=== PATIENT | male | born 1970 | race African-American/Black ===

== ENCOUNTER 2018-01-04 23:15 | Emergency (ER) | payer SELFPAY ==
--- NOTE | 2018-01-04 23:46 | EDM.PDOC ---
ED HPI GENERAL MEDICAL PROBLEM - General Chief Complaint: Fever Stated Complaint: Fever, Palpitations Time Seen by Provider: 01/04/18 23:23 Source of Information: Reports: Patient, Family History Limitations: Reports: No Limitations - History of Present Illness INITIAL COMMENTS - FREE TEXT/NARRATIVE: Patient presents with complaints of cough, fever, and chest pain. He has had this over the last couple of days. He states that he has a respiratory infection on an annual basis. Reported to have taken ibuprofen before coming in. Reports a fever of 101.4 F at home. Is drinking fluids. Additional complaints include shortness of breath, headache, chills, fever, sore throat. No abdominal pain, nausea, or vomiting. No blood in urine or stools. He states he is having regular bowel and bladder movements. No neurologic changes. No daily medications or allergies stated. Onset: Gradual Onset Date: 01/01/18 Duration: Getting Worse Location: Reports: Chest Severity: Moderate Associated Symptoms: Reports: Chest Pain, Cough, Fever/Chills, Headaches Treatments [employer]ING: Reports: NSAIDS - Related Data Allergies Allergy/AdvReac Type Severity Reaction Status Date / Time No Known Allergies Allergy Verified 01/05/18 00:01 Home Meds: Home Meds . [No Known Home Meds] 01/05/18 [History] ED ROS GENERAL - Review of Systems Review Of Systems: See Below Constitutional: Reports: Fever, Chills HEENT: Reports: Throat Pain Respiratory: Reports: Shortness of Breath, Cough Cardiovascular: Reports: Chest Pain Endocrine: Reports: No Symptoms GI/Abdominal: Reports: No Symptoms : Reports: No Symptoms Musculoskeletal: Reports: Joint Pain Skin: Reports: No Symptoms Neurological: Reports: Headache Psychiatric: Reports: No Symptoms Hematologic/Lymphatic: Reports: No Symptoms Immunologic: Reports: No Symptoms ED EXAM, GENERAL - Physical Exam Exam: See Below Exam Limited By: No Limitations General Appearance: Alert, WD/WN, Mild Distress Eye Exam: Bilateral Eye: EOMI, Normal Inspection, PERRL Ears: Normal TMs Nose: Normal Inspection, Normal Mucosa, No Blood Throat/Mouth: Inflammation Head: Atraumatic, Normocephalic Neck: Normal Inspection, Supple, Lymphadenopathy (L), Lymphadenopathy (R) Respiratory/Chest: No Respiratory Distress, Lungs Clear, Normal Breath Sounds, No Accessory Muscle Use, Chest Non-Tender Cardiovascular: Other (sinus with PAC's) GI/Abdominal: Normal Bowel Sounds, Soft, Non-Tender, No Organomegaly, No Distention, No Abnormal Bruit, No Mass Extremities: Normal Inspection, Normal Range of Motion, Non-Tender, Normal Capillary Refill, No Pedal Edema Neurological: Alert, Oriented, CN II-XII Intact, Normal Cognition, Normal Gait, Normal Reflexes, No Motor/Sensory Deficits Psychiatric: Normal Affect, Normal Mood Skin Exam: Warm, Dry, Intact, Normal Color, No Rash Lymphatic: Adenopathy (as above to anterior cervical bilateral) EKG INTERPRETATION EKG Date: 01/04/18 Time: 23:28 Rhythm: Other (sinus rhythm with pac's) [place]: Normal P-Wave: Present QRS: Normal ST-T: Normal QT: Normal Comparison: NA - No Prior EKG EKG Interpretation Comments: sinus rhythm with pac's possible right ventricular conduction delay minimal voltage criteria for lvh, possible normal variant septal SC of indeterminate age abnormal ecg Course - Orders/Labs/Meds Orders: Active Orders 24 hr Category Date Time Status EKG Documentation Completion [RC] STAT Care 01/04/18 23:24 Ordered C-REACTIVE PROTEIN [CHEM] Stat Lab 01/04/18 23:24 Ordered CBC WITH AUTO DIFF [HEME] Stat Lab 01/04/18 23:25 Ordered COMPREHENSIVE METABOLIC PN,CMP [CHEM] Stat Lab 01/04/18 23:24 Ordered INFLUENZA A+B AG SCREEN [RM] Stat Lab 01/04/18 23:24 Ordered STREP SCRN A RAPID W CULT CONF [RM] Stat Lab 01/04/18 23:24 Ordered TROPONIN I [CHEM] Stat Lab 01/04/18 23:24 Ordered - Re-Assessments/Exams Free Text/Narrative Re-Assessment/Exam: 01/05/18 00:27 Review of labs do not indicate ACS, nor do they indicate an acute bacterial process. Departure - Departure Time of Disposition: 00:26 Disposition: Home, Self-Care 01 Condition: Good Clinical Impression: Viral upper respiratory illness - Discharge Information Instructions: Upper Respiratory Infection, Adult Additional Instructions: stay well hydrated with water Take ibuprofen and tylenol for fever follow at the clinic if you are not better in 3-5 days or if your symptoms worsen your labs and ecg do not indicate any cardiac involvement Your chest pain is likely due to the cough you have If you smoke you should quit If your strep culture is positive later today, we will call you with a prescription for an antibiotic If you have any questions or concerns, please call us at any time. - Problem List & Annotations (1) Viral upper respiratory illness SNOMED Code(s): 928013835 Code(s): J06.9 - ACUTE UPPER RESPIRATORY INFECTION, UNSPECIFIED Status: Acute Priority: Low Current Visit: Yes - Problem List Review Problem List Initiated/Reviewed/Updated: Yes - My Orders Last 24 Hours: My Active Orders 01/04/18 23:24 EKG Documentation Completion [RC] STAT C-REACTIVE PROTEIN [CHEM] Stat COMPREHENSIVE METABOLIC PN,CMP [CHEM] Stat INFLUENZA A+B AG SCREEN [RM] Stat STREP SCRN A RAPID W CULT CONF [RM] Stat TROPONIN I [CHEM] Stat 01/04/18 23:25 CBC WITH AUTO DIFF [HEME] Stat - Assessment/Plan Last 24 Hours: My Active Orders 01/04/18 23:24 EKG Documentation Completion [RC] STAT C-REACTIVE PROTEIN [CHEM] Stat COMPREHENSIVE METABOLIC PN,CMP [CHEM] Stat INFLUENZA A+B AG SCREEN [RM] Stat STREP SCRN A RAPID W CULT CONF [RM] Stat TROPONIN I [CHEM] Stat 01/04/18 23:25 CBC WITH AUTO DIFF [HEME] Stat Assessment:: viral respiratory infection Plan: stay well hydrated with water Take ibuprofen and tylenol for fever follow at the clinic if you are not better in 3-5 days or if your symptoms worsen your labs and ecg do not indicate any cardiac involvement Your chest pain is likely due to the cough you have If you smoke you should quit If your strep culture is positive later today, we will call you with a prescription for an antibiotic If you have any questions or concerns, please call us at any time.
[2018-01-05 00:19] LABS: CHLORIDE,CL 103 mmol/L (98-107); SODIUM,NA 136 mmol/L (136-145)
== END 2018-01-05 00:36 | disposition home or self-care (01) ==
LOC: EDSEX → VM.ED 23:15
DX: J06.9 Acute upper respiratory infection, unspecified (principal)
CPT/HCPCS: 36415; 80053; 84484; 85025; 86140; 87081; 87804; 87880; 93005; 93010; 99283; 99285; G0480

== ENCOUNTER 2019-03-19 09:11 | Emergency (ER) | payer SELFPAY ==
--- NOTE | 2019-03-19 09:37 | EDM.PDOC ---
ED HPI GENERAL MEDICAL PROBLEM - General Chief Complaint: Back Pain or Injury Stated Complaint: BACK PAIN Time Seen by Provider: 03/19/19 09:21 Source of Information: Reports: Patient History Limitations: Reports: No Limitations - History of Present Illness INITIAL COMMENTS - FREE TEXT/NARRATIVE: Patient comes into the emergency department with complaints of lower back pain. Patient states this started approximately 5 months ago. States it is localized in the lower sacrum area and radiates to the left hip and down and around to the left knee. He states it feels like spasms and throbbing sensation that time. He has been trying ibuprofen and icy hot at home intermittently. He denies seeking any treatment or care with primary care services. He denies any injury, numbness and tingling, chest pain, shortness of breath, GI upset, lower extremity discomfort. Onset: Gradual Location: Reports: Back Quality: Reports: Ache, Throbbing Improves with: Reports: None, Rest Worsens with: Reports: Movement Associated Symptoms: Reports: No Other Symptoms Bilateral Lower Back Pain Score (Numeric/FACES): 8 - Related Data Allergies Allergy/AdvReac Type Severity Reaction Status Date / Time No Known Allergies Allergy Verified 03/19/19 09:30 Home Meds: Home Meds . [No Known Home Meds] 01/05/18 [History] Past Medical History - Past Health History Medical/Surgical History: Denies Medical/Surgical History ED ROS GENERAL - Review of Systems Review Of Systems: See Below Constitutional: Reports: No Symptoms HEENT: Reports: No Symptoms Respiratory: Reports: No Symptoms Cardiovascular: Reports: No Symptoms Endocrine: Reports: No Symptoms GI/Abdominal: Reports: No Symptoms : Reports: No Symptoms Musculoskeletal: Reports: Back Pain Skin: Reports: No Symptoms Neurological: Reports: No Symptoms Psychiatric: Reports: No Symptoms Hematologic/Lymphatic: Reports: No Symptoms Immunologic: Reports: No Symptoms ED EXAM,LOWER BACK PAIN/INJURY - Physical Exam Exam: See Below Exam Limited By: No Limitations General Appearance: Alert, WD/WN, No Apparent Distress Respiratory/Chest: No Respiratory Distress, No Accessory Muscle Use Cardiovascular: Normal Peripheral Pulses, Regular Rate, Rhythm GI/Abdominal: Normal Bowel Sounds, Soft, Non-Tender, No Distention Back Exam: Normal Inspection, Full Range of Motion, Decreased Range of Motion, Muscle Spasm Extremities: Normal Inspection, Normal Range of Motion, Non-Tender Neurological: Alert, Normal Gait Skin Exam: Warm, Dry, Intact Course - Vital Signs Last Recorded V/S: Last Vital Signs Temp 36.8 C 03/19/19 09:18 Pulse 96 03/19/19 09:18 Resp 16 03/19/19 09:18 BP 161/108 H 03/19/19 09:18 Pulse Ox 97 03/19/19 09:18 - Orders/Labs/Meds Orders: Active Orders 24 hr Category Date Time Status Orphenadrine [Norflex] Med 03/19/19 09:45 Active 60 mg IM Q12H Medication Orders Orphenadrine Citrate (Norflex) 60 mg IM Q12H STANISLAW Last Admin: 03/19/19 09:45 Dose: 60 mg Meds: Medications Generic Name Dose Route Start Last Admin Trade Name Freq PRN Reason Stop Dose Admin Orphenadrine Citrate 60 mg 03/19/19 09:45 03/19/19 09:45 Norflex IM 60 mg Q12H STANISLAW Administration Discontinued Medications Generic Name Dose Route Start Last Admin Trade Name Freq PRN Reason Stop Dose Admin Ketorolac Tromethamine 30 mg 03/19/19 09:32 03/19/19 09:44 Toradol IM 03/19/19 09:33 30 mg ONETIME ONE Administration Departure - Departure Time of Disposition: 10:00 Disposition: Home, Self-Care 01 Condition: Good Clinical Impression: Back muscle spasm - Discharge Information *PRESCRIPTION DRUG MONITORING PROGRAM REVIEWED*: Not Applicable *COPY OF PRESCRIPTION DRUG MONITORING REPORT IN PATIENT CLAUDIA: Not Applicable Instructions: Muscle Strain, [id number], Back Exercises, Heat Therapy, Easy- to-Read Referrals: PCP,None [Primary Care Provider] - Forms: ED Department Discharge, ED Return to Work/School Form Additional Instructions: 1. rest 2. increase water intake 3. Can take Toradol or cyclobenzaprine as needed for muscle spasms. Can also take [id number] Tylenol intermittently to help with any pain 4. Attach her some back exercises to help loosen the muscle 5. Can use ice or heat therapy to help with muscle spasms and inflammation in the lower back. Application should be 20 minutes at a time 3-4 times a day 6. Follow up with PCP/chiropractor/massage therapist in 3-4 days if not feeling better 7. Activity and diet as tolerated try to avoid any strenuous activities or heavy lifting for the next couple days 8. Call if any questions or concerns - My Orders Last 24 Hours: My Active Orders 03/19/19 09:45 Orphenadrine [Norflex] 60 mg IM Q12H - Assessment/Plan Last 24 Hours: My Active Orders 03/19/19 09:45 Orphenadrine [Norflex] 60 mg IM Q12H Assessment:: 1. back pain Plan: 1. Norflex given in the ER. 2. Toradol given in the ER. 3. Patient sent with prescription of cyclobenzaprine and Toradol to help with muscle spasms 4. Education regarding activity and diet, OTC medication, back stretches, and follow-up care provided. 5. All questions and concerns addressed prior to discharge
[2019-03-19] MEDS: Ketorolac 30 MG/ML SDV IM ONE (09:44)
== END 2019-03-19 10:10 | disposition home or self-care (01) ==
LOC: VM.ED 09:11
DX: M62.830 Muscle spasm of back (principal)
CPT/HCPCS: 96372; 99283; J1885; J2360

== ENCOUNTER 2019-04-16 15:05 | Emergency (ER) | payer SELFPAY ==
--- NOTE | 2019-04-16 16:58 | EDM.PDOC ---
ED HPI GENERAL MEDICAL PROBLEM - General Chief Complaint: Laceration Stated Complaint: FINGER LACERATION Time Seen by Provider: 04/16/19 16:25 Source of Information: Reports: Patient History Limitations: Reports: No Limitations - History of Present Illness INITIAL COMMENTS - FREE TEXT/NARRATIVE: Patient comes into the emergency department with complaint of left hand first finger laceration. Patient was cutting tile and slipped with the knife and ended up cutting his finger causing a laceration. Patient was able to control the bleeding with direct pressure. Patient presented emergency department shortly after laceration. Patient states he has no numbness, tingling, or loss of sensation. Patient states he has good range of motion of the finger. Patient denies any other concerns or complaints and states he is up-to-date on his tetanus Onset: Sudden Quality: Reports: Other Severity: Mild Improves with: Reports: None Worsens with: Reports: None Context: Reports: Trauma Associated Symptoms: Reports: No Other Symptoms Left Finger-Index Pain Score (Numeric/FACES): 2 - Related Data Allergies Allergy/AdvReac Type Severity Reaction Status Date / Time No Known Allergies Allergy Verified 03/19/19 09:30 Home Meds: Home Meds Cyclobenzaprine [Flexeril] 10 mg PO TID #15 tab 03/19/19 [Rx] Ketorolac [Toradol] 10 mg PO TID PRN #15 tab 03/19/19 [Rx] Past Medical History - Past Health History Medical/Surgical History: Denies Medical/Surgical History Social & Family History - Tobacco Use Smoking Status *Q: Current Every Day Smoker Years of Tobacco use: 10 Packs/Tins Daily: 0.2 ED ROS GENERAL - Review of Systems Review Of Systems: See Below Constitutional: Reports: No Symptoms HEENT: Reports: No Symptoms Respiratory: Reports: No Symptoms Cardiovascular: Reports: No Symptoms GI/Abdominal: Reports: No Symptoms : Reports: No Symptoms Musculoskeletal: Reports: No Symptoms Neurological: Reports: No Symptoms Psychiatric: Reports: No Symptoms Hematologic/Lymphatic: Reports: No Symptoms ED EXAM, SKIN/RASH Exam: See Below Exam Limited By: No Limitations General Appearance: Alert, WD/WN, No Apparent Distress Head: Atraumatic, Normocephalic Neck: Normal Inspection, Supple, Non-Tender, Full Range of Motion Respiratory/Chest: No Respiratory Distress, Lungs Clear, Normal Breath Sounds, No Accessory Muscle Use, Chest Non-Tender Cardiovascular: Normal Peripheral Pulses, Regular Rate, Rhythm, No Edema, No Murmur Extremities: Normal Inspection, Normal Range of Motion, Non-Tender, No Pedal Edema, Normal Capillary Refill Neurological: Alert, Oriented, Normal Gait Psychiatric: Normal Affect, Normal Mood Skin: Warm, Dry, Normal Color Location, Skin: Upper Extremity, Left (laceration ) Characteristics: Linear Associated features: No: Warmth, Tenderness, Swelling, Induration, Inflammation Course - Vital Signs Last Recorded V/S: Last Vital Signs Temp 36.4 C 04/16/19 16:00 Pulse 98 04/16/19 16:00 Resp 16 04/16/19 16:00 BP 125/83 04/16/19 16:00 Pulse Ox 99 04/16/19 16:00 - Orders/Labs/Meds Meds: Medications Discontinued Medications Generic Name Dose Route Start Last Admin Trade Name Brandon PRN Reason Stop Dose Admin Lidocaine HCl 5 ml 04/16/19 16:21 04/16/19 16:28 Xylocaine-Mpf 1% INJECT 04/16/19 16:22 5 ml ONETIME ONE Administration Departure - Departure Time of Disposition: 15:55 Disposition: Home, Self-Care 01 Condition: Good Clinical Impression: Laceration - Discharge Information *PRESCRIPTION DRUG MONITORING PROGRAM REVIEWED*: Not Applicable *COPY OF PRESCRIPTION DRUG MONITORING REPORT IN PATIENT CLAUDIA: Not Applicable Instructions: Stitches, Carmelo, or Adhesive Wound Closure, [id number], Laceration Care, Adult, [id number] Referrals: PCP,None [Primary Care Provider] - Forms: ED Department Discharge, ED Return to Work/School Form Additional Instructions: 1. Keep the area clean and dry 2. keep the area covered with gloves especially when cooking 3. Follow up in 10 days in the clinic to have the laceration evaluated and sutures removed 4. Activity and diet as tolerated. 5. Call with any questions and concerns. - Assessment/Plan Assessment:: 1. laceration Plan: 1. wound cleansing completed 2. wound repair with sutures completed 3. post dressing applied 4. 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 Education regarding activity, diet, OTC medication, wound care, and follow up provided. 6. Tetanus is up to date 7. All questions and concerns addressed prior to discharge.
== END 2019-04-16 17:00 | disposition home or self-care (01) ==
LOC: VM.ED 15:05
DX: S61.211A Laceration without foreign body of left index finger without damage to nail, initial encounter (principal); W26.0XXA Contact with knife, initial encounter; Y93.89 Activity, other specified; F17.200 Nicotine dependence, unspecified, uncomplicated
CPT/HCPCS: 12001; 99283; J2001

== ENCOUNTER 2025-08-22 21:26 | Emergency (ER) | payer SELFPAY ==
[2025-08-22] MEDS ORDERED: Sodium Chloride 0.9% 10 ML Syringe FLUSH PRN (21:28)
[2025-08-22 21:55] LABS: BASOPHILS ABSOLUTE AUTO 0.0 x10^3/uL (0.0-0.2); BASOPHILS PERCENT AUTO 0.1 % (0.2-1.2); EOSINOPHILS ABSOLUTE AUTO 0.0 x10^3/uL (0.0-0.5); EOSINOPHILS PERCENT AUTO 0.3 % (0.0-4.0); IMMATURE GRAN ABSOLUTE AUTO 0.01 x10^3/uL (0.00-0.07); IMMATURE GRAN PERCENT AUTO 0.10 % (0.00-0.43); LYMPHOCYTES ABSOLUTE AUTO 1.2 x10^3/uL (1.0-4.8); LYMPHOCYTES PERCENT AUTO 14.9 % (25.0-50.0); MONOCYTES ABSOLUTE AUTO 0.5 x10^3/uL (0.0-0.8); MONOCYTES PERCENT AUTO 6.9 % (2.0-11.0); NEUTROPHILS ABSOLUTE AUTO 6.0 x10^3/uL (1.8-7.7); NEUTROPHILS PERCENT AUTO 77.7 % (50.0-80.0); PLATELET COUNT,PLT 268 x10^3/uL (130-400); RED BLOOD CELL COUNT 5.48 x10^6/uL (4.5-6.0); WHITE BLOOD CELL COUNT,WBC 7.8 x10^3/uL (4.0-10.0)
[2025-08-22 22:11] LABS: A/G RATIO 0.73; ALANINE AMINOTRANSFERASE,ALT 22 U/L (16-63); ASPARTATE AMNIOTRANSFERASE,AST 17 U/L (15-37); BILIRUBIN TOTAL 0.5 mg/dL (0.2-1.0); BLOOD UREA NITROGEN,BUN 13 mg/dL (7-18); CARBON DIOXIDE,CO2 23 mmol/L (21-32); CHLORIDE,CL 103 mmol/L (98-107); CREATININE 1.0 mg/dL (0.70-1.30); GLUCOSE RANDOM 139 mg/dL (70-99); POTASSIUM,K 3.5 mmol/L (3.5-5.1); PROTEIN TOTAL,TP 7.6 g/dL (6.4-8.2); SODIUM,NA 137 mmol/L (136-145)
[2025-08-22 22:12] LABS: ESTIMATED GFR 90 mL/min (>=60); ETHANOL BLOOD MEDICAL < 3 mg/dL (0-3)
[2025-08-22 22:46] LABS: APPEARANCE,URINE CLEAR (CLEAR); GLUCOSE,URINE NEGATIVE (NEGATIVE); OCCULT BLOOD,URINE NEGATIVE (NEGATIVE)
[2025-08-22 22:48] LABS: AMPHETAMINES SCREEN, URINE POSITIVE (NEGATIVE); BUPRENORPHINE SCREEN,URINE NEGATIVE (NEGATIVE); COCAINE METABOLITES,URINE POSITIVE (NEGATIVE); METHADONE SCREEN, URINE NEGATIVE (NEGATIVE); METHAMPHETAMINE SCREEN, URINE POSITIVE (NEGATIVE); OXYCODONE SCREEN,URINE NEGATIVE (NEGATIVE); PCP SCREEN,URINE NEGATIVE (NEGATIVE); THC SCREEN,URINE 50 NG/ML NEGATIVE (NEGATIVE)
[2025-08-22] MEDS: Lidocaine 1% with EPINEPHrine 1:100,000 20 ML MDV INFILT ONE (23:10)
[2025-08-22] MEDS: Iopamidol 755 Mg/ML 100 ML Bottle IVPUSH ONE (23:39)
[2025-08-23] MEDS: Diphtheria,Pertussis(Acell),Tetanus Vaccine 0.5 ML Syringe IM ONE (01:20)
== END 2025-08-23 02:10 | disposition short-term general hospital (02) ==
LOC: VM.ED 21:26
DX: S01.01XA Laceration without foreign body of scalp, initial encounter (principal); I65.01 Occlusion and stenosis of right vertebral artery; Z23 Encounter for immunization; W18.39XA Other fall on same level, initial encounter; Y93.89 Activity, other specified
CPT/HCPCS: 12002; 36415; 70450; 70496; 72125; 80053; 80305; 80307; 81001; 85025; 90471; 90715; 96374; 96376; 99284; 99285; J1920; J2004; Q9967